=== PATIENT | female | born 1955 | race Caucasian/White ===

== ENCOUNTER → 2023-02-03 07:34 | Outpatient (REF) | payer MEDICARE, BC, SELFPAY | LOC: RAD 07:34 | PROVIDERS: ATTENDING PHYSICIAN Nurse Practitioner Adult Health | DX: M85.89 Other specified disorders of bone density and structure, multiple sites (principal) | CPT/HCPCS: 77080 ==

== ENCOUNTER → 2024-02-16 11:08 | Outpatient (REF) | payer MEDICARE, BC, SELFPAY | LOC: WDC 11:08 | PROVIDERS: ATTENDING PHYSICIAN Nurse Practitioner Adult Health | DX: Z12.31 Encounter for screening mammogram for malignant neoplasm of breast (principal) | CPT/HCPCS: 77063; 77067 ==

== ENCOUNTER → 2025-02-20 11:28 | Outpatient (REF) | payer MEDICARE, BC, SELFPAY | LOC: WDC 11:28 | PROVIDERS: ATTENDING PHYSICIAN Nurse Practitioner Adult Health | DX: Z12.31 Encounter for screening mammogram for malignant neoplasm of breast (principal) | CPT/HCPCS: 77063; 77067 ==

== ENCOUNTER → 2025-02-28 07:45 | Outpatient (REF) | payer MEDICARE, BC, SELFPAY | LOC: RAD 07:45 | PROVIDERS: ATTENDING PHYSICIAN Nurse Practitioner Adult Health | DX: Z78.0 Asymptomatic menopausal state (principal) | CPT/HCPCS: 77080 ==